=== PATIENT | female | born 1970 | race African-American/Black ===

== ENCOUNTER 2016-04-12 09:30 | Emergency (ER) | payer MEDICAID ==
--- NOTE | 2016-04-12 10:27 | ER Document Report ---
HPI - HPI Patient complains to provider of: low back pain Onset: Other - chronic Onset/Duration: Gradual Quality of pain: Throbbing Pain Level: 5 Context: 45-year-old female complaining of worsening exacerbation of her chronic upper back pain. 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 Dr. Elizabeth is her primary care doctor who was aware of this and they're trying to get an MRI. She is no radiculopathy today. No fever. No cough. No chest pain or shortness of breath. Associated Symptoms: None Exacerbated by: Sitting, Movement Relieved by: Denies Similar symptoms previously: Yes Recently seen / treated by doctor: Yes - ROS ROS below otherwise negative: Yes Systems Reviewed and Negative: Yes All other systems reviewed and negative - REPRODUCTIVE Reproductive: DENIES: : - MUSCULOSKELETAL Musculoskeletal: REPORTS: Back Pain - DERM Skin Color: Normal - NURSING COMMENTS Comment: See triage Past Medical History - General Information source: Patient - Social History Smoking Status: Never Smoker Cigarette use (# per day): No Chew tobacco use (# tins/day): No Frequency of alcohol use: None Drug Abuse: None Lives with: Family Family History: Arthritis, CAD, CVA, DM, Hyperlipidemia, Hypertension, Malignancy Patient has suicidal ideation: No Patient has homicidal ideation: No - Past Medical History Cardiac Medical History: Reports: Hx Hypercholesterolemia, Hx Hypertension Pulmonary Medical History: Reports: Hx Bronchitis - Last time 2011 Neurological Medical History: Reports: Hx Migraine Renal/ Medical History: Reports: Hx Ectopic - 2, Hx Ovarian Cysts Musculoskeltal Medical History: Reports Hx Arthritis, Reports Hx Musculoskeletal Deformity, Reports Hx Musculoskeletal Trauma Past Surgical History: Reports: Hx Breast Surgery - breast reduction, Hx Section, Hx Hysterectomy, Hx Orthopedic Surgery - back. Denies: Hx Pacemaker - Immunizations Hx Diphtheria, Pertussis, Tetanus Vaccination: No - unknown Vertical Provider Document - CONSTITUTIONAL Agree With Documented VS: Yes Exam Limitations: No Limitations - INFECTION CONTROL TRAVEL OUTSIDE OF THE [place] IN LAST 30 DAYS: No - HEENT HEENT: Normocephalic - NECK Neck: Supple Notes: Tender bilateral trapezius and muscles are very tense - RESPIRATORY Respiratory: Breath Sounds Normal, No Respiratory Distress O2 Sat by Pulse Oximetry: 100 - CARDIOVASCULAR Cardiovascular: Regular Rate, Regular Rhythm - BACK Back: Normal Inspection - MUSCULOSKELETAL/EXTREMETIES Musculoskeletal/Extremeties: RODNEY HENAO - NEURO Level of Consciousness: Awake, Alert Motor/Sensory: No Motor Deficit, No Sensory Deficit - DERM Integumentary: Warm, Dry, No Rash Course - Vital Signs Vital signs: Temp Pulse Resp BP Pulse Ox 97.9 F 72 20 146/73 H 100 04/12/16 09:43 04/12/16 09:43 04/12/16 09:43 04/12/16 09:43 04/12/16 09:43 Discharge - Discharge Clinical Impression: exacerbation of chronic back pain Condition: Good Disposition: HOME, SELF-CARE Instructions: Warm Packs ([facility]), Oral Narcotic Medication ([facility]), Muscle Strain ( [facility]), Muscle Relaxers ([facility]) Additional Instructions: See Dr. Elizabeth for follow-up Warm compress Return to the emergency room if any concerns Ergonomically correct her workplace so the computer monitor is at eye level Prescriptions: Hydrocodone Bit/Acetaminophen [Hydrocodon-Acetaminophen 5-325] 1 - 2 each PO Q4HP PRN #20 tablet PRN Reason: Ibuprofen [Motrin 800 mg Tablet] 800 mg PO Q8HP PRN #30 tablet PRN Reason: Cyclobenzaprine HCl [Flexeril 10 Mg Tablet] 10 mg PO TIDP PRN #20 tablet PRN Reason: Forms: Return to Work Referrals: GONZÁLEZ ELIZABETH DO [Primary Care Provider] - Follow up as needed
[2016-04-12 11:06] VITALS: BP 130/80
== END 2016-04-12 11:08 | disposition home or self-care (01) ==
LOC: ER 09:30
DX: M54.5 Low back pain (principal); G89.29 Other chronic pain
CPT/HCPCS: 99283